=== PATIENT | male | born 1965 | race Caucasian/White ===

== ENCOUNTER 2016-11-15 02:05 | Emergency (ER) | payer MEDICARE, OTHER ==
[~2016-11-15] VITALS: Ht 180.3 cm; Wt 88.0 kg
[2016-11-15] MEDS ORDERED: protonix PO (02:20)
[2016-11-15] MEDS ORDERED: BUPR10TASR PO (02:20)
[2016-11-15] MEDS ORDERED: ONDANSETRON 4 MG ORAL DISINTEGRATING TAB (S0181) PO ONE (04:00)
[2016-11-15 04:07] VITALS: BP 121/81
--- NOTE | 2016-11-15 05:56 | ECGEPIP ---
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
--- NOTE | 2016-11-15 08:18 | REP ---
Clinical: Chest pain. Aspiration . Comparison: 08/02/2016 . Findings: The mediastinum and cardiac silhouette are stable and within normal limits for portable technique. The lung blake are clear without acute consolidation, effusion, or pneumothorax. Skeletal structures are intact. Impression: Normal portable chest x-ray Signed by Jadiel Sarabia MD 11/15/2016 08:10 A
== END 2016-11-15 04:25 | disposition home or self-care (01) ==
LOC: M ED 03:58
DX: F10.120 Alcohol abuse with intoxication, uncomplicated (principal); F43.0 Acute stress reaction; F43.10 Post-traumatic stress disorder, unspecified; Z87.820 Personal history of traumatic brain injury; Z79.899 Other long term (current) drug therapy; J30.89 Other allergic rhinitis; F41.9 Anxiety disorder, unspecified; F32.9 Major depressive disorder, single episode, unspecified; M51.9 Unspecified thoracic, thoracolumbar and lumbosacral intervertebral disc disorder; K21.9 Gastro-esophageal reflux disease without esophagitis; J84.10 Pulmonary fibrosis, unspecified